=== PATIENT | female | born 1975 | race Caucasian/White ===

== ENCOUNTER 2020-02-15 16:42 | Inpatient (IN) ==
[2020-02-15] MEDS ORDERED: Acetaminophen 325 MG TABLET PO PRN (17:21)
[2020-02-15] MEDS ORDERED: Naloxone 0.4 MG/ML INJ IVP PRN (17:21)
[2020-02-15] MEDS ORDERED: Ondansetron 4 MG/2 ML VIAL IVP PRN (17:21)
[2020-02-15 19:11] LABS: Creatine Kinase 61 Units/L (30-223); Ethanol < 10 mg/dL (Less than 10)
[2020-02-15 19:25] LABS: Thyroid Stimulating Hormone 4.986 mcIU/mL (0.340-5.600)
[2020-02-15] MEDS: *HR* LORazepam 2 MG/ML VIAL IVP PRN (19:56)
[2020-02-15] MEDS: Lithium Carbonate 300 MG CAPSULE PO SCH (20:36)
[2020-02-15] MEDS: risperiDONE 1 MG TABLET PO SCH (20:37)
[2020-02-16 00:49] LABS: Basophils # 0.1 K/mcL (0.0-0.2); Basophils % 0.6 %; Eosinophils # 0.4 K/mcL (0.0-0.6); Eosinophils % 4.3 %; Hematocrit 37.3 % (35.3-44.9); Hemoglobin 11.7 g/dL (11.5-15.4); Immature Granulocytes % 0.4 % (0-4); Lymphocytes # 1.4 K/mcL (0.6-4.6); Lymphocytes % 14.4 %; Mean Corpuscular HGB Conc 31.4 g/dL (31.6-35.5); Mean Corpuscular Hemoglobin 27.8 pg (28.0-33.3); Mean Corpuscular Volume 88.6 fL (83.0-100.0); Monocytes # 0.7 K/mcL (0.0-1.3); Monocytes % 7.5 %; Neutrophils # 7.2 K/mcL (1.6-8.9); Platelet Count 194 K/mcL (140-400); Red Blood Count 4.21 M/mcL (3.82-4.97); Red Cell Distribution Width 12.8 % (11.5-14.5); Segmented Neutrophils % 72.8 %; White Blood Count 9.8 K/mcL (4.3-11.1)
[2020-02-16 00:54] LABS: INR 1.1; Prothrombin Time 12.2 Seconds (9.4-12.1)
[2020-02-16 00:57] LABS: Activated Partial Thrombo Time 30.4 Seconds (26.0-36.0)
[2020-02-16 01:08] LABS: Magnesium 1.8 mg/dL (1.6-2.6); Phosphorous 3.9 mg/dL (2.7-4.5)
[2020-02-16] MEDS: *HR* Enoxaparin 40 MG/0.4 ML SYRINGE SQ SCH (06:04)
[2020-02-16] MEDS: *HR* LORazepam 2 MG/ML VIAL IVP PRN (08:29)
[2020-02-16] MEDS: risperiDONE 1 MG TABLET PO SCH ×2 (08:29→21:02)
[2020-02-16] MEDS ORDERED: Gadolinium Contrast Agent (WT Based) IV PRN (15:06)
[2020-02-16] MEDS: Lithium Carbonate 300 MG CAPSULE PO SCH (21:02)
[2020-02-17 04:32] LABS: Hematocrit 37.5 % (35.3-44.9); Hemoglobin 11.7 g/dL (11.5-15.4); Mean Corpuscular HGB Conc 31.2 g/dL (31.6-35.5); Mean Corpuscular Hemoglobin 27.6 pg (28.0-33.3); Mean Corpuscular Volume 88.4 fL (83.0-100.0); Mean Platelet Volume 9.1 fL (9.4-12.4); Platelet Count 189 K/mcL (140-400); Red Blood Count 4.24 M/mcL (3.82-4.97); Red Cell Distribution Width 12.8 % (11.5-14.5); White Blood Count 8.5 K/mcL (4.3-11.1)
[2020-02-17 04:52] LABS: BUN/Creatinine Ratio 18 (6-26); Blood Urea Nitrogen 17 mg/dL (6-20); Calcium 8.8 mg/dL (8.6-10.3); Carbon Dioxide 25 mEq/L (23-29); Chloride 107 mEq/L (98-107); Glucose 111 mg/dL (70-105); Osmolality,Calculated 284 (280-300); Potassium 3.8 mEq/L (3.5-5.1); Sodium 136 mEq/L (136-145); eGFR For African Americans > 60 (> 60); eGFR For Non-African Americans > 60 (> 60)
[2020-02-17] MEDS: *HR* Enoxaparin 40 MG/0.4 ML SYRINGE SQ SCH (05:40)
[2020-02-17 07:15] VITALS: BP 113/76
[2020-02-17] MEDS: risperiDONE 1 MG TABLET PO SCH (08:37)
== END 2020-02-17 11:12 | disposition home or self-care (01) | DRG 880 ==
LOC: EMEROOARM 16:42 → 3BNU 16:42 → SUATTDRO 17:02 → 3BNU 18:51 → SUATTDRO 02-16 15:21
PROVIDERS: ADMIT Internal Medicine; ATTEND Internal Medicine